=== PATIENT | female | born 1950 | race Hispanic/Latino ===

== ENCOUNTER 2021-05-22 15:28 | Emergency (ER) | payer MEDICARE, OTHER ==
[~2021-05-22] VITALS: Ht 167.6 cm; Wt 61.2 kg
[2021-05-22 16:24] LABS: BASOPHILS % (AUTO) 0.8 % (0.0-5.0); HEMATOCRIT 38.2 % (36-48); LYMPHOCYTES % (AUTO) 15.9 % (21.0-51.0); MEAN CORPUSCULAR HEMOGLOBIN 32.1 pg (27.0-33.0); MEAN CORPUSCULAR HGB CONC 34.6 g/dL (32.0-36.0); MEAN CORPUSCULAR VOLUME 92.9 fL (79-99); MONOCYTES % (AUTO) 6.9 % (3.0-13.0); NEUTROPHILS % (AUTO) 75.1 % (40.0-77.0); PLATELET COUNT (AUTO) 315 K/uL (130-400); RED BLOOD CELL COUNT(AUTO) 4.11 MIL/uL (4.00-5.50); RED CELL DISTRIBUTION WIDTH 12.2 % (11.0-15.5); WHITE BLOOD COUNT (AUTO) 8.6 K/uL (4.8-10.8)
[2021-05-22] MEDS ORDERED: ASPIRIN 81MG CHEW TAB PO ONE (16:30)
[2021-05-22 16:42] LABS: ALBUMIN 4.2 g/dL (3.5-5.0); BILIRUBIN,TOTAL 0.6 mg/dL (0.2-1.0); CREATININE 0.5 mg/dL (0.5-1.5); TOTAL PROTEIN, SERUM 8.2 g/dL (6.0-8.3)
[2021-05-22 16:45] LABS: INR 1.06 (0.85-1.15); PROTHROMBIN TIME 11.5 SEC (9.6-11.6)
[2021-05-22 16:47] LABS: B-TYPE NATRIURETIC PEPTIDE 35 pg/mL (0-100)
[2021-05-22 16:47] LABS: PARTIAL THROMBOPLASTIN TIME 27.3 SEC (26.3-35.5)
[2021-05-22 16:54] VITALS: BP 172/98
[2021-05-22] MEDS: NITROGLYCERIN 1GM OINT 1 INCH/1GM TD ONE ×2 (17:06→17:19)
[2021-05-22 17:23] LABS: APPEARANCE,URINE Clear (CLEAR); BILIRUBIN,URINE Negative (NEGATIVE); COLOR,URINE Yellow (YELLOW); GLUCOSE, URINE (UA) Negative (NEGATIVE); KETONES,URINE 15 mg/dL (NEGATIVE); LEUKOCYTE ESTERASE ,URINE Negative (NEGATIVE); NITRATE,URINE Negative (NEGATIVE); OCCULT BLOOD,URINE Negative (NEGATIVE); PROTEIN,URINE Negative (NEGATIVE); UROBILINOGEN,URINE 0.2 mg/dL (0.2-1.0)
[2021-05-22] MEDS ORDERED: METOPROLOL TARTRATE 25 MG TAB PO ONE (17:30)
[2021-05-22] MEDS ORDERED: ALPRAZOLAM 0.5 MG TABLET PO ONE (17:30)
[2021-05-22] MEDS ORDERED: ALPRAZOLAM 0.25 MG TABLET PO SCH (18:00)
[2021-05-22] MEDS ORDERED: ALPR0.25 PO (18:44)
[2021-05-22 18:46] VITALS: BP 135/80
== END 2021-05-22 19:00 | disposition home or self-care (01) ==
LOC: EDH 15:28
DX: I10 Essential (primary) hypertension (principal); F41.9 Anxiety disorder, unspecified; F43.0 Acute stress reaction; Z79.82 Long term (current) use of aspirin; Z79.899 Other long term (current) drug therapy
CPT/HCPCS: 36415; 71045; 80053; 81003; 82550; 83880; 84484; 85025; 85610; 85730; 93005

== ENCOUNTER → 2023-07-17 | Outpatient (CLI) | payer OTHER ==
[~2023-07-17] MED LIST: ALPR0.25 PO
== END | disposition home or self-care (01) ==
LOC: RAH 12:32
PROVIDERS: ATTEND Family Medicine Sports Medicine
DX: Z12.31 Encounter for screening mammogram for malignant neoplasm of breast (principal)
CPT/HCPCS: 77067

== ENCOUNTER → 2025-03-24 | Outpatient (CLI) | payer OTHER ==
[~2025-03-24] MED LIST changes: +IOHEXOL 350 MG/ML 100ML INFUS..BTL IV ONE
--- NOTE | 2025-04-07 09:52 | CARDIOLOGY ---
RAD REPORT: CORNARY CT ANGIO RADIOLOGY REPORT: CORONARY CT ANGIOGRAPHY DATE: March 24, 2025 QUALITY: Excellent CLINICAL HISTORY AND INDICATION: [ palpitations ] TECHNIQUE: After obtaining a preliminary lpn or medical assistant image, contrast imaging performed on an [employer] [id number] scanner. A dedicated, limited window, coronary imaging protocol was used, with single breath-hold, retrospective ECG gating, and automated arrhythmia rejection. 100 cc of low osmolar contrast agent: Omnipaque 350 was delivered via a 18-gauge IV catheter in the right antecubital fossa, using a power injector and followed by 60 cc of normal saline bolus as a chaser. Collimated images were reformatted at 0.5 mm intervals, and sent to an offline independent workstation for interpretation, using 3D anatomic reconstructions: Curved multiplanar reconstructions, maximum intensity projections, and multiplanar imaging. No metoprolol was administered prior to scanning due to low baseline heart rate. 0.8 mg SL nitroglycerin was given. CORONARY ARTERY DESCRIPTIONS: The coronary arteries arise in normal position. Left main coronary artery: Normal caliber vessel that bifurcates into the LAD and LCx. There is calcified plaque in the distal left main with 50-60% stenosis. Left anterior descending coronary artery: Normal caliber vessel and gives rise to diagonal and septal branches. There is calcified plaque in the ostial and mid LAD with 70-80% stenosis. The LAD is tortuous distally. Left circumflex coronary artery: Normal caliber, nondominant and gives rise to a large OM branch. The LCx is not well visualized. Right coronary artery: Large, dominant vessel giving rise to the PL and PDA branches. There is calcified plaque in the proximal and distal RCA with 30-40% stenosis. CAD-RADs: 4B, severe multivessel obstructive CAD. Due to motion artifact, the luminal stenosis may be overestimated. Thoracic Aorta: Normal diameter. Gaby June MD Cardiovascular Disease [facility] GABY JUNE MD Apr 07, 2025 09:51
== END | disposition home or self-care (01) ==
LOC: RAH 08:20
PROVIDERS: ATTEND Internal Medicine Cardiovascular Disease
DX: I25.10 Atherosclerotic heart disease of native coronary artery without angina pectoris (principal); R07.9 Chest pain, unspecified; R00.2 Palpitations
CPT/HCPCS: 75574; Q9967

== ENCOUNTER → 2025-04-22 | Outpatient (CLI) | payer OTHER ==
[~2025-04-22] MED LIST changes: +ASPI-1443 PO; -IOHEXOL 350 MG/ML 100ML INFUS..BTL IV ONE; +LORA10CA PO; +OLMESARTAN PO; +VALA500T42 PO
--- NOTE | 2025-04-26 13:24 | HMCIMG ---
CLINICAL INDICATION: Age-related osteoporosis without current pathological fracture COMPARISON: None available TECHNIQUE: Bone densitometry is performed of the lumbar spine and left hip. FINDINGS: Total BMD of lumbar spine is 0.798 g/cm2 with a T-score of -2.3 and Z-score is 0.0. Total BMD of left hip is 0.708 g/cm2 with a T-score of -1.9 and Z-score is -0.3. FRAX SCORE: The 10 year fracture risk for a major osteoporotic fracture and hip fracture 13% IMPRESSION: 1. Osteopenia of the lumbar spine and left hip 2. I would recommend follow-up in 13 months. World Health Organization criteria for BMD interpretation classify patients as Normal (T-score at or above -1.0), Osteopenic (T-score between -1.0 and -2.5), or Osteoporotic (T-score at or below -2.5). FRAX SCORE: A. All treatment decisions require clinical judgment and consideration of individual patient factors, including patient preferences, comorbidities, previous drug use, risk factors not captured in the FRAX model (e.g., frailty, falls, vitamin D deficiency, increased bone turnover, interval significant decline in bone density) and possible cobmz-gi-zsyd-estimation of fracture risk by FRAX. B. In addition, the NOF Guide recommends that FDA-approved medical therapies be considered in postmenopausal women and men age greater than or equal to 50 years with a: i. Hip or vertebral (clinical or morphometric) fracture. ii. T-score of less than or equal to -2.5 at the spine or hip. iii. Ten-year fracture probability by FRAX of greater than or equal to 3% for hip fracture of greater than or equal to 20% for major osteoporotic fracture.
--- NOTE | 2025-04-27 11:25 | HMCIMG ---
DIGITAL BILATERAL SCREENING MAMMOGRAM Technique: The digital mammographic examination of both breasts in craniocaudal and mediolateral oblique views along with CAD was obtained. History: This is a 74 years year-old female 0, para0 Ab0. Patient has no family history of breast cancer. Patient has no complaint Reference:Prior mammogram from 07/17/2023 is available.. Breast composition: Breast composition C: The breasts are heterogeneously dense, which may obscure small masses. Finding: The digital mammographic examination of both breasts in craniocaudal and mediolateral oblique view along with CAD demonstrates both breasts to be moderately heterogeneously nodular dense breasts.. There is no evidence of any dendritic mass, cluster microcalcification or architectural distortion. The retromammary fat appears to be normal. IMPRESSION: Due to moderately heterogeneously nodular dense breast I would recommend a baseline bilateral breast sonogram.. FINAL ASSESSMENT: ACR: BI-RAD -0. Incomplete: need additional imaging evaluation. Management: Recall for additional imaging and/or comparison with prior examination(s). Likelihood of Cancer: N/A NOTE: IF A WORK-UP OF THIS PATIENT LEADS TO A BIOPSY, PLEASE FORWARD A COPY OF THE PATHOLOGY REPORT TO OUR OFFICE REQUIRED BY SA E[employer]ECTIVE JUNE 02, 1994. A NEGATIVE MAMMOGRAM SHOULD NOT PRECLUDE BIOPSY OF A CLINICALLY PALPABLE SUSPICIOUS MASS, 10% OF BREAST CANCERS ARE MAMMOGRAPHICALLY OCCULT. THIS MAMMOGRAPHY FACILITY IS FULLY ACCREDITED BY THE FOOD AND DRUG ADMINISTRATION (FDA). THANK YOU FOR THIS REFERRAL.
== END | disposition home or self-care (01) ==
LOC: RAH 12:21
PROVIDERS: ATTEND Internal Medicine
DX: Z12.31 Encounter for screening mammogram for malignant neoplasm of breast (principal); M81.0 Age-related osteoporosis without current pathological fracture; M85.89 Other specified disorders of bone density and structure, multiple sites
CPT/HCPCS: 77067; 77080

== ENCOUNTER 2025-05-28 05:56 | Observation (INO) | payer OTHER ==
[2025-05-26 10:49] VITALS: BP 144/86; PULSE 68; RESP 18; TEMP 97
[2025-05-26 10:49] LABS: IMMATURE GRANULOCYTE ABSOLUTE 0.01 K/uL (0-1); NUCLEATED RED BLOOD CELLS 0.0 % (0.0-0.19); PLATELET COUNT (AUTO) 267 K/uL (130-400); RED BLOOD CELL COUNT(AUTO) 3.58 MIL/uL (4.00-5.50); RED CELL DISTRIBUTION WIDTH 12.7 % (11.0-15.5); WHITE BLOOD COUNT (AUTO) 5.2 K/uL (4.8-10.8)
[2025-05-26 10:58] LABS: CREATININE 0.7 mg/dL (0.5-1.0); GLOMERULAR FILTR. RATE CALC 92.0 mL/min (>90); GLUCOSE,RANDOM 91.0 mg/dL (70-105); SODIUM SERUM 133.0 mmol/L (136-145); UREA NITROGEN, BLOOD 16.0 mg/dL (7-18)
[2025-05-26 10:59] LABS: APPEARANCE,URINE CLEAR (CLEAR); GLUCOSE, URINE (UA) NEGATIVE (NEGATIVE); LEUKOCYTE ESTERASE ,URINE NEGATIVE Leu/uL (NEGATIVE); NITRATE,URINE NEGATIVE (NEGATIVE); OCCULT BLOOD,URINE NEGATIVE (NEGATIVE)
--- NOTE | 2025-05-26 10:59 | EKG ---
[facility] Test Date: 2025-05-26 Test Time: 10:34:41 Pat Name: CAROLEE VERA Department: [facility] Room: [facility] Gender: F Boot Turner: [id number] : 1950 Requested By: JEFF DYE Order Number: [id number] Reading MD: Edna Samuel Measurements Intervals [place] Rate: 60 P: 17 VA: 136 QRS: -12 QRSD: 105 T: 43 QT: 433 QTc: 433 Interpretive Statements Incomplete analysis due to missing data in precordial lead(s) Sinus rhythm Compared to ECG 04/27/2025 09:33:22 No significant changes Electronically Signed On 05-28-2025 08:36:49 CDT by Edna Samuel Please click the below link to view image of tracing.
[2025-05-26 11:00] LABS: ADD UA MICROSCOPIC NO
[2025-05-26 11:16] LABS: INR 1.01 (0.85-1.15)
--- NOTE | 2025-05-26 14:15 | HMCIMG ---
EXAM: CR Chest, 1 View. CLINICAL HISTORY: PRE-OP COMPARISON: None provided. X-ray chest 04/27/2025 FINDINGS: LUNGS: The lungs show no infiltrate or other acute finding. PLEURAL SPACES: No evidence of pleural effusion or pneumothorax. MEDIASTINUM: Cardiac size and mediastinal contours within normal limits. BONES: No aggressive appearing osseous lesion seen. IMPRESSION: No acute cardiopulmonary pathology is evident. /Breaks
[~2025-05-28] VITALS: Ht 165.1 cm; Wt 72.6 kg
[2025-05-28] VITALS (15 sets, daily range): BP systolic 79–132; BP diastolic 38–72; PULSE 52–81; RESP 13–19; TEMP 97.2–98.2; O2SAT 96–100
[~2025-05-28 05:56] MED LIST changes: -ALPR0.25 PO; +ATOR10 PO; +UBID100T7 PO
[2025-05-28] MEDS ORDERED: LIDOCAINE HCL 400MG/20ML VIAL ONE (07:27)
[2025-05-28] MEDS ORDERED: MIDAZOLAM HCL 1 MG/ML 2ML VIAL ONE ×2 (07:27→09:05)
[2025-05-28] MEDS ORDERED: IOHEXOL 350 MG/ML 100ML INFUS..BTL IV ONE (07:28)
[2025-05-28] MEDS ORDERED: NITROGLYCERIN 50MG VIAL ONE (07:28)
[2025-05-28] MEDS ORDERED: HEParin-NS 1,000 UNIT/500 ML 1,000 ML IV ONE (07:28)
[2025-05-28] MEDS ORDERED: HEParin-NS 1,000 UNIT/500 ML 500 ML IV ONE (07:31)
[2025-05-28] MEDS ORDERED: ATROPINE 1MG SYG IVP ONE (08:51)
[2025-05-28] MEDS ORDERED: ASPIRIN 325MG EC TAB PO ONE (09:36)
[2025-05-28] MEDS ORDERED: GLUCAGON 1MG KIT 1 MG ML IM PRN (10:30)
[2025-05-28] MEDS ORDERED: DEXTROSE 50%-WATER 50 ML DISP.SYRIN IV PRN (10:30)
--- NOTE | 2025-05-28 10:34 | PRN ---
PROCEDURE NOTE Indications: Chest pain 1V CAD, 70-80% stenosis in the mid RCA identified by LHC/coronary angiogram done on 04/29/2025 Nonobstructive CAD in the LAD and LCX identified by LAC/coronary angiogram done on 04/29/2025 Abnormal coronary CTA done on 03/24/2025 HTN HLP Normal left ventricle systolic function (LVEF 55-60% by echocardiogram done on 02/18/2025) Paroxysmal SVT JARVIS Procedures: Coronary angiogram, IVUS assessment of the mid RCA, balloon angioplasty, balloon lithotripsy, and ANN-MARIE placement in the mid RCA Introduction: After informed written consent was obtained, the patient was brought to the Catheterization Lab in the usual fasting state. Following sterile prep and drape, a time out was performed, then moderate sedation was administered, 1mg of Versed and 50mcg of Fentanyl, then 1% Lidocaine was infiltrated into the right femoral groin. Using a Modified Seldinger technique, a 6Fr Sheath was inserted into the right common femoral artery. While under fluoroscopic guidance, diagnostic coronary catheters were advanced over a wire into the central circulation where they were aspirated, flushed and placed to pressure monitoring, once the wire was removed. Coronary Angio: The right coronary artery was engaged with the appropriate catheter and angiography was performed under continuous pressure monitoring. Cardiac Findings: Right dominant system RCA: Large caliber vessel with diffuse 80% stenosis in the mid RCA. RPDA: Medium caliber vessel mild luminal irregularities RPLV: Medium caliber vessel with mild luminal irregularities Medications given: Versed 4mg, Fentanyl 150mcg, heparin 9000 units, clopidogrel 600 mg x 1 dose and aspirin 325 mg x 1 dose, nitroglycerin 200 mcg x 1 dose Coronary Intervention: Guide catheter: LCB Guidewire: 0.014 runthrough guidewire, 0.014 wiggle wire After reviewing the above-mentioned findings the decision was made to intervene on the RCA. The 0.014 runthrough guidewire and LCB guide catheter were advanced into the ostium of the RCA. We then advanced the runthrough wire across the area of stenosis in the distal RCA. We then performed IVUS assessment of the mid RCA. We then performed balloon angioplasty (3.0 x 14 mm) in the mid RCA. We then attempted to perform balloon lithotripsy (shockwave 3.5 x 12 mm) in the mid RCA, both were unable to advance the balloon across the area of stenosis. We then decided to exchange the runthrough guidewire for a wiggle wire. A 0.014 FineCross catheter were as advanced to the distal end of the runthrough guidewire. The guidewire was then exchanged for a 0.014 wiggle wire, which was placed in the distal RCA. We then removed the FineCross catheter and re- advanced the 0.014 runthrough guidewire across the area of stenosis into the distal RCA. We then performed balloon lithotripsy (shockwave 3.5 x 12 mm) in the mid RCA (over the with a wire). We then performed successful ANN-MARIE placement (Xience skypoint 3.5 x 18 mm, 3.5 x 38 mm and 3.0 x 12 mm) in an overlapping manner, in the proximal, mid, mid to distal RCA. The proximal stents were post dilated using a 4.0 by 15 noncompliant balloon and the distal stent (3.0 x 12 mm) was post dilated using a 3.5 x 8 mm balloon, achieving optimal results. The balloons were then removed and repeat angiography was performed, which revealed widely patent stents in the proximal mid, mid, and mid to distal RCA and HANNAH three blood flow distally. The wiggle and runthrough guidewires and LCB guide catheter were then removed. The patient tolerated the procedure well and without issue. Complications: None Conscious Sedation Monitoring: Under my direct order and supervision, medication for moderate conscious sedation was administered by the nursing staff and the patients level of consciousness and physiological status was monitored by an independent trained nurse. Closure of Access Site: After the case completed the sheath was pulled and a 6Fr Angioseal was deployed in the right common femoral artery without complication. Conclusion: 1. 1V CAD, diffuse 80% stenosis in the mid RCA status post successful treatment with balloon angioplasty, balloon lithotripsy, and ANN-MARIE placement (Xience skypoint 3.5 x 18 mm, 3.5 x 38 mm, 3.0 x 12 mm) in the proximal, mid, and mid to distal RCA. The stents were post dilated with NC balloon achieving optimal results 2. Nonobstructive CAD in the LAD and LCX identified by LAC/coronary angiogram done on 04/29/2025 3. Abnormal coronary CTA done on 03/24/2025 4. HTN 5. HLP 6. Normal left ventricle systolic function (LVEF 55-60% by echocardiogram done on 02/18/2025) 7. Paroxysmal SVT 8. JARVIS Recommendation: 1. Continue goal-directed medical therapy. 2. Start clopidogrel 75 mg daily. Continue aspirin 81 mg daily. The patient will be on DAPT for a minimum of six months and optimally one year. 3. Groin precautions 4. 4 hours of bedrest. 5. Start NS at 100 mL/hour x3 hours. 6. The patient will be admitted to the hospitalist service for overnight observation. Dr. Witt has been notified of the admission. 7. Okay to DC in the a.m. as long as the right groin is soft, and free of bruising, bleeding, and or hematoma formation. 8. The patient has been given a handwritten prescription for clopidogrel. 9. No driving for the next 48 hours. 10. No heavy lifting or strenuous exercise for the next two weeks. 11. Please have the patient follow up with Dr. Tomlin in 1-2 weeks. JEFF TOMLIN MD May 28, 2025 10:34
--- NOTE | 2025-05-28 11:01 | NUR ---
PT ARRIVED TO DAY #14 RIGHT GROIN ASYMPTOMATIC. BP WAS LOW ON ARRIVAL. DR. SCHMITZ AT BEDSIDE WHEN PT ARRIVED. ORDERED 250ML BOLUS AND ANOTHER 250 ML BOLUS NS IF NEEDED FOR LOW BLOOD PRESSURE. PT STATES HEADACHE DROWSINESS.
[2025-05-28] MEDS ORDERED: 0.9% NACL 250ML 250 ML IV ONE ×2 (11:30)
--- NOTE | 2025-05-28 11:30 | NUR ---
RX FOR PLAVIX GIVEN TO PATIENTS SUDEEP KELLER AT BEDSIDE, PER PATIENTS REQUEST
--- NOTE | 2025-05-28 11:46 | HP ---
[facility] HISTORY AND PHYSICAL Date of Service: May 28, 2025 Time of Service: 11:36 HISTORY OF PRESENT ILLNESS: Date of service: 05/28/2025, patient was seen in day patient unit, room 14 This is a 74-year-old female with underlying history of hypertension, hyperlipidemia, history of coronary artery disease, paroxysmal SVT, history of prior ear surgeries for cholesteatoma with metal implant, who is status post cardiac catheterization today. Patient has a previous history of coronary artery disease with prior history of cardiac catheterization in 04/2025 which identified 70-80% stenosis involving the mid RCA. Patient was electively brought to the lab assistant today for staged PCI of the RCA. Patient was found to have diffuse 80% stenosis involving the mid RCA and underwent balloon angioplasty with lithotripsy and drug-eluting stent placement to proximal, mid and mid to distal RCA by Dr. Dye, today. Patient postprocedure denies any chest pain, shortness of breath, significant back pain or bruising involving the right groin. Patient does report that she has underlying history of hypertension and is sensitive to antihypertensives. She is usually on olmesartan 2.5 mg daily, she took higher dose of olmesartan 5 mg today. Patient at bedside noted to have mild hypotension with blood pressure trending in the 80s/40s, patient will receive IV fluid bolus, patient's case was discussed with Dr. Dye who agrees with IV fluids for now and watching blood pressure trend today. We will monitor this patient closely under observation for 24 hours and anticipate discharge tomorrow if patient remains hemodynamically stable and clinically doing well. REVIEW OF SYSTEMS: CONSTITUTIONAL: Denies fevers, chills, or night sweats. No unintentional weight loss reported. NEUROLOGICAL: Denies headache, amaurosis fugax, motor weakness, sensory deficit, vertigo/spinning sensation, gait abnormalities, or tremors. ENT: No hearing loss, otalgia, otorrhea, rhinitis, rhinorrhea, hoarseness, or sore throat. CARDIOVASCULAR: Denies any exertional angina, dyspnea on exertion, orthopnea, paroxysmal nocturnal dyspnea, palpitations, life-threatening arrhythmias, claudication. PULMONARY: Denies any shortness of breath, cough, phlegm/sputum, hemoptysis, pleuritic chest pain. SLEEP: Denies morning headaches, daytime somnolence or napping. Denies difficulty falling asleep, staying asleep, waking from sleep. Denies knowledge of snoring. GASTROINTESTINAL: Denies any type of dysphagia to either liquids or solids. Denies nausea, vomiting, pyrosis, early satiety, abdominal pain, diarrhea, constipation, or changes in stool consistency or caliber. Denies coffee-ground emesis, hematemesis, hematochezia, or melanotic stools. GENITOURINARY: Denies frequency, urgency, nocturia, hematuria or incontinence (Storage/Irritative symptoms.) Low urinary stream, straining to void, urinary intermittency or hesitancy, splitting of the voiding stream, terminal dribbling. ENDOCRINOLOGIC: Denies polyuria, polydipsia, polyphagia or heat/cold intolerances. HEMATOLOGIC: Denies thrombophilia/previous clots, or coagulopathy/bleeding disorders. ONCOLOGIC: Denies personal history of malignancy. DERMATOLOGIC: Denies rashes or pruritus. PSYCHIATRIC: Denies any suicidal or homicidal ideation. Denies hallucinations. PAST MEDICAL HISTORY: History of hypertension, cataract surgery, coronary artery disease, history of paroxysmal supraventricular tachycardia, history of amaurosis fugax, history of cholesteatoma involving the ear PAST SURGICAL HISTORY: History of coronary angiogram/cardiac catheterization in 04/2025, multiple prior ear surgeries with metal plate, patient reports that she can not get MRI due to history of metal five PAST SOCIAL HISTORY: Currently denies any active smoking or alcohol consumption FAMILY HISTORY: Father has a history of heart disease and stroke Allergies: Patient has allergic reaction to penicillin Home medications: Medications include atorvastatin 5 mg daily, coenzyme Q10 100 mg daily, olmesartan 2.5 mg daily, aspirin 81 mg daily, loratadine 10 mg daily, valacyclovir 500 mg in the morning Coded Allergies: No Allergy Information Available (Verified Allergy, Unknown, 05/22/21) Penicillins (Unverified Allergy, Unknown, 04/27/25) PHYSICAL EXAM GENERAL APPEARANCE: The patient is awake, alert, and oriented, in no acute cardiopulmonary distress. NEUROLOGICAL: Cranial nerves II-XII grossly intact. Motor is 5/5 in bilateral upper and lower extremities proximal to distal. No sensory deficits. HEENT: Face is symmetric. Pupils are equal and reactive. Extraocular movements are intact. NECK: Supple. No JVD. No thyromegaly. No submental, submandibular, pre- /postauricular, occipital or supraclavicular lymphadenopathy. CHEST: Normal chest expansion. No Telemetry. LUNGS: Absence of any rales, rhonchi or any wheezing. CARDIOVASCULAR: Regular. S1 and S2 normal. No appreciable rubs, murmurs or gallops. ABDOMEN: Soft, nontender, and nondistended. There is no rebound, voluntary guarding, or rigidity. : Deferred. No Alvarez. EXTREMITIES: Non-edematous and not cyanotic. No clubbing. Good capillary r efill. Right groin examined shows no bruising, it is soft with no significant hematoma noted SKIN: No skin breakdown. Vital Sign (Last 24 Hours) 05/28/25 06:15 Temp 97.5 Pulse 81 Resp 15 B/P (MAP) 132/71 Pulse Ox 96 O2 Delivery Room Air FiO2 21 LABS: Labs from 05/26/2025 showed findings of WBC count of 5200, hemoglobin of 11.6, platelet count of 816651 BMP showed sodium of 133, potassium 4.0, chloride of 100, BUN of 16, creatinine 0.7, BNP of 117 Current Medications Medications (Trade) Dose Ordered Sig/Felicita Route PRN Reason Start Time Stop Time Status Last Admin Dose Admin Aspirin (Aspirin 81mg Ec Tab) 81 mg AM PO 05/29/25 09:00 06/28/25 08:59 Atorvastatin Calcium (LIPItor 10MG) 5 mg DAILY PO 05/29/25 09:00 06/28/25 08:59 Clopidogrel Bisulfate (plaVIX 75MG) 75 mg DAILY PO 05/29/25 09:00 06/28/25 08:59 Dextrose (D50w) 50 ml AD PRN IV HYPOGLYCEMIA PROTOCOL 05/28/25 10:30 06/27/25 10:29 Glucagon (Glucagon 1mg Kit) 1 mg AD PRN IM HYPOGLYCEMIA PROTOCOL 05/28/25 10:30 06/27/25 10:29 Home Med (Home Medication) (Ubidecarenone (Coenzyme Q10) 100 MG) DAILY PO 05/29/25 09:00 06/28/25 08:59 Home Med (Home Medication) ([Olmesartan] 2.5 MG) DAILY PO 05/29/25 09:00 06/28/25 08:59 Loratadine (LORATAdine 10 mg) 10 mg DAILY PO 05/29/25 09:00 06/28/25 08:59 Sodium Chloride 1,000 ml @ 100 mls/hr Q10H IV 05/28/25 10:30 05/28/25 13:29 Valacyclovir HCl (ValtREX) 500 mg AM PO 05/29/25 09:00 06/28/25 08:59 DIAGNOSTICS / RADIOLOGY: SERVICE 1014 REASON: PRE-OP ORDERING PHYSICIAN: JEFF DYE MD PROCEDURE: CXR1VW - CHEST 1VW EXAM: CR Chest, 1 View. CLINICAL HISTORY: PRE-OP COMPARISON: None provided. X-ray chest 04/27/2025 FINDINGS: LUNGS: The lungs show no infiltrate or other acute finding. PLEURAL SPACES: No evidence of pleural effusion or pneumothorax. MEDIASTINUM: Cardiac size and mediastinal contours within normal limits. BONES: No aggressive appearing osseous lesion seen. IMPRESSION: No acute cardiopulmonary pathology is evident. /[place] DICTATED BY: VINNIE LINDSAY MD DATE: 05/26/251513 ELECTRONICALLY SIGNED BY: VINNIE LINDSAY MD DATE: 05/26/251513 ASSESSMENT: Status post cardiac catheterization with findings of 80% stenosis involving mid RCA status post successful balloon angioplasty, balloon lithotripsy and drug- eluting stent placement to proximal, mid and mid to distal RCA by Dr. Dye, 05/28/2025 History of coronary artery disease, POA Hypertension, POA Hyperlipidemia, POA Obstructive sleep apnea, POA History of paroxysmal SVT, POA PLAN: Patient will continue with close monitoring in PCCU Patient noted to be hypotensive postprocedure with a pressure in the 80s/40s, patient will receive fluid bolus, discussed patient's case with Dr. Dye who agrees with IV fluids and monitoring how patient is closely in the next 24 hours, patient does report that she took higher dose of her olmesartan today of 5 mg instead of 2.5 mg which may be playing a role with hypotension, patient also received IV hydralazine during cardiac catheterization We will monitor groin site for any bruising or bleeding or signs of hematoma We will see how patient progresses in the next 24 hours Continue with dual antiplatelet therapy with aspirin and Plavix post PCI Continue with atorvastatin Resume olmesartan 2.5 mg daily tomorrow All labs will be repeated in the morning Anticipate discharge home tomorrow if patient remains stable tonight with blood pressure trend improving Date of service: 05/28/2025 Plan of care was discussed with patient at bedside, Farooq Lowe MD Advanced Care Planning: Which of the following were discussed: Hospice care: Yes __ No _X_ Therapeutic options: Yes _X_ No __ Advance directives: Yes _X_ No __ Other discussions: Discussed with who?: Patient Voluntary nature of this service was explained to the patient? Yes _x_ No __ Amount of time spent: 20 minutes FAROOQ LOWE MD May 28, 2025 11:46
[2025-05-28] MEDS: 0.9% NACL 500ML IV.SOLN 250 ML IV ONE (12:15)
[2025-05-28] MEDS: 0.9%NACL 1000ML 1,000 ML IV SCH ×2 (12:15→14:00)
--- NOTE | 2025-05-28 15:15 | NUR ---
pt was received from day pt and right groin dressing is dry and intact and no hematoma or ecchymosis noted. pt in no apparent discomfort, pt is hard of hearing but is able to hear nursing staff.
--- NOTE | 2025-05-28 15:28 | NUR ---
REPORT CALLED TO [facility] IN ROOM 232 NURSE WILL AWAIT FOR ROOM TO BE CLEANED THEN TRANSFER TO FLOOR
[2025-05-29 00:26] VITALS: BP 115/61; PULSE 77; RESP 16; TEMP 97.3
[2025-05-29 03:30] VITALS: BP 129/62; PULSE 75; RESP 16; TEMP 98.1
[2025-05-29 03:51] LABS: IMMATURE GRANULOCYTE ABSOLUTE 0.02 K/uL (0-1); NUCLEATED RED BLOOD CELLS 0.0 % (0.0-0.19); PLATELET COUNT (AUTO) 215 K/uL (130-400); RED BLOOD CELL COUNT(AUTO) 2.77 MIL/uL (4.00-5.50); RED CELL DISTRIBUTION WIDTH 13.1 % (11.0-15.5); WHITE BLOOD COUNT (AUTO) 5.9 K/uL (4.8-10.8)
[2025-05-29 03:58] LABS: CREATININE 0.6 mg/dL (0.5-1.0); GLOMERULAR FILTR. RATE CALC 95.0 mL/min (>90); GLUCOSE,RANDOM 81.0 mg/dL (70-105); SODIUM SERUM 142.0 mmol/L (136-145); UREA NITROGEN, BLOOD 12.0 mg/dL (7-18)
[2025-05-29] MEDS ORDERED: PoTASSium chloRIDE 20MEQ ER 20 MEQ ERTAB PO PRN (05:30)
[2025-05-29] MEDS: PoTASSium chl 10% ELIXIR 20MEQ 20 MEQ/15 ML UDCUP PO PRN (06:07)
[2025-05-29 07:35] VITALS: BP 147/70; PULSE 72; RESP 18; TEMP 97.6
[2025-05-29] MEDS: UBIDECARENONE 100 MG PO SCH (07:41)
[2025-05-29] MEDS: ASPIRIN 81 MG EC TAB PO SCH (07:42)
[2025-05-29] MEDS: OLMESARTAN PO SCH (07:42)
[2025-05-29] MEDS: LORATAdine 10 mg 10 MG TABLET PO SCH (07:42)
[2025-05-29 08:00] VITALS: O2SAT 98
--- NOTE | 2025-05-29 10:58 | DS ---
Discharge Summary Hospital Course Summary: Patient admitted to hospital May 28, 2025 with the following history of the present illness: Date of service: 05/28/2025, patient was seen in day patient unit, room 14 This is a 74-year-old female with underlying history of hypertension, hyperlipidemia, history of coronary artery disease, paroxysmal SVT, history of prior ear surgeries for cholesteatoma with metal implant, who is status post cardiac catheterization today. Patient has a previous history of coronary artery disease with prior history of cardiac catheterization in 04/2025 which identified 70-80% stenosis involving the mid RCA. Patient was electively brought to the syrup machine laborer today for staged PCI of the RCA. Patient was found to have diffuse 80% stenosis involving the mid RCA and underwent balloon angioplasty with lithotripsy and drug-eluting stent placement to proximal, mid and mid to distal RCA by Dr. Tomlin, today. Patient postprocedure denies any chest pain, shortness of breath, significant back pain or bruising involving the right groin. Patient does report that she has underlying history of hypertension and is sensitive to antihypertensives. She is usually on olmesartan 2.5 mg daily, she took higher dose of olmesartan 5 mg today. Patient at bedside noted to have mild hypotension with blood pressure trending in the 80s/40s, patient will receive IV fluid bolus, patient's case was discussed with Dr. Tomlin who agrees with IV fluids for now and watching blood pressure trend today. We will monitor this patient closely under observation for 24 hours and anticipate discharge tomorrow if patient remains hemodynamically stable and clinically doing well. Hospital course Discussed with cardiovascular physician, patient admitted for 24 hour observation with the anticipation of being discharged today. Patient alert oriented x3, hemodynamically stable, okay to be discharged home from cardiac standpoint. Chief Of Planning(s): Cardiology Procedure(s): Left heart catheterization 05/28/2025. Patient was found to have diffuse 80% stenosis involving the mid RCA and underwent balloon angioplasty with lithotripsy and drug-eluting stent placement to proximal, mid and mid to distal RCA Assessment/Plan: Final diagnosis Status post cardiac catheterization with findings of 80% stenosis involving mid RCA status post successful balloon angioplasty, balloon lithotripsy and drug-el uting stent placement to proximal, mid and mid to distal RCA by Dr. Tomlin, 05/28/2025 History of coronary artery disease, POA Hypertension, POA Hyperlipidemia, POA Obstructive sleep apnea, POA History of paroxysmal SVT, POA Discharge Instructions: Patient to be discharged home, to follow up with inspector fuel hose as an outpatient, return to the hospital if condition changes. Patient agreed and understood the information provided. Home Medications: Reported Medications Ubidecarenone (Coenzyme Q10) 100 Mg Tablet, 100 MG PO DAILY, TAB 05/26/25 Atorvastatin Calcium (LIPITOR) 10 Mg Tab, 5 MG PO DAILY, TAB 05/26/25 [Olmesartan] No Conflict Check, 2.5 MG PO DAILY 05/26/25 Loratadine (Claritin) 10 Mg Capsule, 10 MG PO AM, CAP 04/27/25 Aspirin (Aspirin EC) 81 Mg Tablet.dr, 81 MG PO AM, TAB 04/27/25 Valacyclovir HCl (Valacyclovir) 500 Mg Tablet, 500 MG PO AM, TAB 04/27/25 Discontinued Reported Medications Diltiazem HCl (Diltiazem ER) 120 Mg Capsule.er, 1 CAP PO DAILY for 30 Days, #30 CAP 0 Refills 04/29/25 [Olmesartan] No Conflict Check, 5 MG PO AM 04/27/25 Time spent arranging discharge: 31-60 minutes LEONEL NICHOLAS MD May 29, 2025 10:58
[2025-05-29] MEDS ORDERED: ATOR10 PO (11:21)
[2025-05-29] MEDS ORDERED: CLOP-31 PO (11:21)
[2025-05-29] MEDS ORDERED: NITR0.4T50 SL (11:21)
[2025-05-29 11:52] VITALS: BP 140/79; PULSE 71; RESP 18; TEMP 98.2
--- NOTE | 2025-05-29 12:29 | CONS ---
[facility] CARDIOLOGY CONSULTATION NOTE Date Patient Seen: May 29, 2025 Time of Visit: 12:26 Reason for Consultation: [hypotension after PCI ] History of Present Illness: [ This is a 74-year-old female with underlying history of hypertension, hyperlipidemia, history of coronary artery disease, paroxysmal SVT, history of prior ear surgeries for cholesteatoma with metal implant, who is status post cardiac catheterization 05/[address] Tomlin. Patient was found to have diffuse 80% stenosis involving the mid RCA and underwent balloon angioplasty with lithotripsy and drug-eluting stent placement to proximal, mid and mid to distal RCA. Patient does report that she has underlying history of hypertension and is sensitive to antihypertensives. She is usually on olmesartan 2.5 mg daily, she took higher dose of olmesartan 5 mg today. l.] Past Medical History: [ ] Past Surgical History: [ ] Family History: [ ] Social History: [ ] Habits: [Never] smoker. [Denies] alcohol consumption. [Denies] illicit drug use Home Meds: [ ] Current Meds: [ ] Review of Systems: CONST: [No fever, fatigue, or weight changes.] EYES: [No recent vision problems.] ENT: [No congestion, ear pain, or sore throat.] C/V: [No chest pain, palpitations, or edema.] RESP: [No cough, congestion, wheezing or shortness of breath.] GI: [No abdominal pain, nausea, vomiting, constipation, or diarrhea.] : [No incontinence or dysuria.] SKIN: [No rash.] NEURO: [No headache, focal numbness or weakness, dizziness, or seizures.] PSYCH: [No depression or anxiety.] HEME: [No abnormal bruising or bleeding.] LYMPH: [No swollen glands.] Physical Examination: GENERAL: [No acute distress.] HEAD: [Normal with no signs of head trauma.] EYES: [PERRLA, EOMI, conjunctiva and sclera normal.] ENT: [Hearing grossly intact, normal oropharynx.] NECK: [Supple without JVD. There is no tenderness, lymphadenopathy, or masses. No thyromegaly. Normal carotid upstrokes without bruits.] LUNGS: [Clear breath sounds bilaterally. There are right basilar rales one third of the way up the chest. No wheezes, or rhonchi.] HEART: [Normal rate and rhythm. Normal S1 and S2 without mumurs, gallop or rub.] VASC: [Peripheral pulses +2 bilaterally.] ABD: [Bowel sounds normal, soft, nontender, no masses, no organomegaly. No audible bruits.] : [Not examined] LYMPH: [No lymphadenopathy noted.] EXT: [No clubbing, cyanosis or edema.] SKIN: [No rashes or lesions noted.] NEURO: [Awake, alert, and oriented x3. No focal sensory or strength deficits noted.] Vital Signs (last 8hr) Date Time Temp Pulse Resp B/P (MAP) Pulse Ox O2 Delivery O2 Flow Rate FiO2 05/29/25 11:52 98.2 71 18 140/79 97 Room Air 05/29/25 08:00 98 Room Air* 0 21 05/29/25 07:35 97.5 72 18 147/70 98 Room Air Laboratory: [ ] Hematology Labs: Test 05/29/25 03:39 Range/Units White Blood Count 5.9 4.8-10.8 K/uL Red Blood Count 2.77 L 4.00-5.50 MIL/uL Hemoglobin 9.1 #L 12.0-16.0 g/dL Hematocrit 25.9 #L 36-48 % Mean Corpuscular Volume 93.5 79-99 fL Mean Corpuscular Hemoglobin 32.9 27.0-33.0 pg Mean Corpuscular Hemoglobin Concent 35.1 32.0-36.0 g/dL Red Cell Distribution Width 13.1 11.0-15.5 % Platelet Count 215 130-400 K/uL Mean Platelet Volume 8.8 7.5-10.5 fL Immature Granulocyte % (Auto) 0.3 0-1 % Neutrophils (%) (Auto) 61.2 40.0-77.0 % Lymphocytes (%) (Auto) 24.0 21.0-51.0 % Monocytes (%) (Auto) 11.4 3.0-13.0 % Eosinophils (%) (Auto) 2.2 0.0-8.0 % Basophils (%) (Auto) 0.9 0.0-5.0 % Neutrophils # (Auto) 3.6 1.8-7.7 K/uL Lymphocytes # (Auto) 1.4 1.0-4.8 K/uL Monocytes # (Auto) 0.7 0.1-1.0 K/uL Eosinophils # (Auto) 0.13 0.00-0.70 K/uL Basophils # (Auto) 0.05 0.00-0.20 K/uL Absolute Immature Granulocyte (auto 0.02 0-1 K/uL Nucleated Red Blood Cells 0.0 0.0-0.19 % Chemistry Labs: Test 05/29/25 03:39 Range/Units Sodium Level 142 136-145 mmol/L Potassium Level 3.3 L 3.5-5.1 mmol/L Chloride Level 110 101-111 mmol/L Carbon Dioxide Level 24 21-32 mmol/L Blood Urea Nitrogen 12 7-18 mg/dL Creatinine 0.6 0.5-1.0 mg/dL Glomerular Filtration Rate Calc 95 >90 mL/min Random Glucose 81 70-105 mg/dL Total Calcium 7.8 L 8.5-10.1 mg/dL Magnesium Level 1.80 1.80-2.40 mg/dL Diagnostics / Radiology: [Copy/Paste Echos/Imaging Report here] Assessment: [1. 1V CAD, diffuse 80% stenosis in the mid RCA status post successful treatment with balloon angioplasty, balloon lithotripsy, and ANN-MARIE placement (Xience skypoint 3.5 x 18 mm, 3.5 x 38 mm, 3.0 x 12 mm) in the proximal, mid, and mid to distal RCA. The stents were post dilated with NC balloon achieving optimal results 2. Nonobstructive CAD in the LAD and LCX identified by LAC/coronary angiogram done on 04/29/2025 3. Abnormal coronary CTA done on 03/24/2025 4. HTN 5. HLP 6. Normal left ventricle systolic function (LVEF 55-60% by echocardiogram done on 02/18/2025) 7. Paroxysmal SVT 8. JARVIS Recommendation: 1. Continue goal-directed medical therapy. 2. Start clopidogrel 75 mg daily. Continue aspirin 81 mg daily. The patient will be on DAPT for a minimum of six months and optimally one year. -- The patient has been given a handwritten prescription for clopidogrel. -- Please have the patient follow up with Dr. Tomlin in 1-2 weeks. ] I will sign off. Gaby June MD ] GABY JUNE MD May 29, 2025 12:29
--- NOTE | 2025-05-29 14:42 | NUR ---
DCP: INITIAL ASSESSMENT Patient lives alone. She has no home services. Patient has BPM. She is able to complete ADLs and drives. PCP is Dr. Jagdish Jones. Pharmacy is [facility] located in [place], [place]. Patient voiced no safety concerns regarding returning home and states she has no difficulty with housing or buying food. DCP is home. Addendum: 05/29/25 at 1444 by BISMARK MARKS SS Amended: Links added.
--- NOTE | 2025-05-29 14:44 | NUR ---
EMERGENCY CONTACTS KRISHNA HENAO (FRIEND) - [phone] BESS HENAO (FRIEND) - [phone]
== END 2025-05-29 12:50 | disposition home or self-care (01) ==
LOC: DAH 05:56 → DAHIP 05:57 → 2AH 16:20
PROVIDERS: ADMIT Internal Medicine; ATTEND Internal Medicine
DX: I25.10 Atherosclerotic heart disease of native coronary artery without angina pectoris (principal); R01.1 Cardiac murmur, unspecified; I47.10 Supraventricular tachycardia, unspecified; I10 Essential (primary) hypertension; G47.33 Obstructive sleep apnea (adult) (pediatric); E78.5 Hyperlipidemia, unspecified; F19.90 Other psychoactive substance use, unspecified, uncomplicated; I95.9 Hypotension, unspecified; R00.2 Palpitations; Z79.899 Other long term (current) drug therapy; Z98.890 Other specified postprocedural states
CPT/HCPCS: 80048 ×2; 83880; 85025 ×2; 85610; 85730; 81003; 36415 ×2; 71045; 93005; 92978; 92972; 93454; 99156; 99157 ×6; 96360; 96361; 85347 ×2; 83735; C1894 ×2; C1725 ×3; C1760; C1887 ×2; C1769 ×2; C1761; C1753; Q9965 ×2; C1874 ×3; G0378 ×26; J3010 ×2; J3490 ×2; J0360; J1644 ×3; J2250 ×2; Q9967; A4215; A4223 ×3; A4222; A4221; A4663; A4216; A4606; C9600; J0461; J7050